=== PATIENT | female | born 1970 | race Caucasian/White ===

== ENCOUNTER 2017-05-02 13:33 | Inpatient (IN) | payer MEDICARE ==
[~2017-05-02] VITALS: Ht 157.5 cm; Wt 49.9 kg
[~2017-05-02 13:33] MED LIST: BENZ1TAB10 PO; HALO10 PO
[2017-05-02] MEDS ORDERED: INFLUENZA VIRUS VACCINE QVS 2017-18 (3YR+)/PF 60 MCG/0.5 ML SYRINGE IM ONE (14:45)
[2017-05-02] MEDS ORDERED: HALOPERIDOL 5 MG TABLET PO PRN (14:45)
[2017-05-02 16:06] VITALS: BP 119/73
[2017-05-02] MEDS: BENZTROPINE MESYLATE 1 MG TABLET PO SCH (17:00)
[2017-05-02] MEDS: HALOPERIDOL 10 MG TABLET PO SCH (21:00)
[2017-05-03 03:20] VITALS: BP 134/84
[2017-05-03] MEDS: ZOLPIDEM TARTRATE 10 MG TABLET PO PRN (03:23)
[2017-05-03] MEDS ORDERED: HALOPERIDOL LACTATE 5 MG/ML VIAL ONE (04:04)
[2017-05-03] MEDS ORDERED: LORazepam 2 MG/ML VIAL ONE (04:04)
[2017-05-03] MEDS ORDERED: DiphenhydrAMINE HCL 50 MG/ML VIAL ONE (04:04)
[2017-05-03] MEDS ORDERED: LORazepam 2 MG/ML VIAL IM ONE ×2 (04:15→19:45)
[2017-05-03] MEDS ORDERED: HALOPERIDOL LACTATE 5 MG/ML VIAL IM ONE ×2 (04:15→19:45)
[2017-05-03] MEDS ORDERED: DiphenhydrAMINE HCL 50 MG/ML VIAL IM ONE ×2 (04:15→19:45)
[2017-05-03 08:35] VITALS: BP 100/57
[2017-05-03 08:36] LABS: BASOPHILS % (AUTO) 0.7 % (0.0-2.0); EOSINOPHILS % (AUTO) 1.5 % (1.0-6.0); HEMATOCRIT 37.8 % (36-46); HEMOGLOBIN 12.7 g/dL (12.0-16.0); LYMPHOCYTES # (AUTO) 1.9 K/uL (1.0-4.8); LYMPHOCYTES % (AUTO) 18.7 % (22.0-44.0); MEAN CORPUSCULAR HEMOGLOBIN 29.1 pg (26.0-34.0); MEAN CORPUSCULAR HGB CONC 33.6 G/dL (31.0-37.0); MEAN CORPUSCULAR VOLUME 87 fL (80-100); MONOCYTES # (AUTO) 0.7 K/uL (0.1-1.0); MONOCYTES % (AUTO) 6.5 % (2.0-9.0); NEUTROPHILS # (AUTO) 7.3 K/uL (1.8-7.7); NEUTROPHILS % (AUTO) 72.6 % (40.0-70.0); PLATELET COUNT (AUTO) 328 K/uL (150-450); RED BLOOD CELL COUNT(AUTO) 4.37 MIL/uL (4.00-5.20); RED CELL DISTRIBUTION WIDTH 13.7 % (11.5-14.5)
[2017-05-03 08:39] LABS: HEMOGLOBIN A1C 5.5 % (4.5-6.2)
[2017-05-03 08:58] LABS: ALANINE AMINOTRANSFERASE 24 U/L (12-78); ALBUMIN 3.3 g/dL (3.4-5.0); ALKALINE PHOSPHATASE 67 U/L (46-116); ANION GAP 4 mmol/L (8-16); ASPARTATE AMINOTRANSFERASE 17 U/L (15-37); BILIRUBIN,TOTAL 0.2 mg/dL (0.1-1.0); CALCIUM, TOTAL 9.2 mg/dL (8.8-10.5); CARBON DIOXIDE 28 mmol/L (22-29); CHLORIDE 107 mmol/L (98-107); CHOLESTEROL 144 mg/dL (131-200); CREATININE 1.06 mg/dL (0.60-1.30); FREE T4 (FREE THYROXINE) 1.25 ng/dL (0.76-1.46); GLOMERULAR FILTR. RATE CALC 56 mL/min (>60); GLUCOSE,RANDOM 87 mg/dL (70-110); HCG,QUANTITATIVE < 1 mIU/mL (0-6); HDL CHOLESTEROL 71 mg/dL (40-60); LDL CHOL (CALC.) 63 mg/dL (0-130); SODIUM SERUM 139 mmol/L (136-145); THYROID STIMULATING HORMONE 0.59 uIU/mL (0.36-3.74); TOTAL PROTEIN, SERUM 6.4 g/dL (6.4-8.2); TRIGLYCERIDES 52 mg/dL (15-150); UREA NITROGEN, BLOOD 24 mg/dL (7-18)
[2017-05-03] MEDS: BENZTROPINE MESYLATE 1 MG TABLET PO SCH ×2 (09:00→17:00)
[2017-05-03 16:05] VITALS: BP 111/67
[2017-05-03] MEDS ORDERED: IBUPROFEN 400 MG TABLET PO PRN (17:00)
[2017-05-03] MEDS: HALOPERIDOL 10 MG TABLET PO SCH (21:00)
[2017-05-04 02:02] VITALS: BP 122/71
[2017-05-04] MEDS: ZOLPIDEM TARTRATE 10 MG TABLET PO PRN (02:04)
[2017-05-04 08:22] VITALS: BP 125/80
[2017-05-04] MEDS: BENZTROPINE MESYLATE 1 MG TABLET PO SCH ×2 (08:53→16:37)
[2017-05-04] MEDS ORDERED: HALOPERIDOL LACTATE 5 MG/ML VIAL IM ONE (09:30)
[2017-05-04] MEDS ORDERED: LORazepam 2 MG/ML VIAL IM ONE (09:30)
[2017-05-04] MEDS ORDERED: DiphenhydrAMINE HCL 50 MG/ML VIAL IM ONE (09:30)
[2017-05-04 16:31] VITALS: BP 138/90
[2017-05-04] MEDS: HALOPERIDOL 10 MG TABLET PO SCH (20:22)
[2017-05-05] MEDS ORDERED: DiphenhydrAMINE HCL 50 MG/ML VIAL ONE (06:12)
[2017-05-05] MEDS ORDERED: HALOPERIDOL LACTATE 5 MG/ML VIAL ONE (06:13)
[2017-05-05] MEDS ORDERED: LORazepam 2 MG/ML VIAL ONE (06:13)
[2017-05-05] MEDS ORDERED: HALOPERIDOL LACTATE 5 MG/ML VIAL IM ONE ×2 (06:15→18:15)
[2017-05-05] MEDS ORDERED: LORazepam 2 MG/ML VIAL IM ONE ×2 (06:15→18:15)
[2017-05-05] MEDS ORDERED: DiphenhydrAMINE HCL 50 MG/ML VIAL IM ONE ×2 (06:15→18:15)
[2017-05-05 06:52] VITALS: BP 110/62
[2017-05-05 07:12] VITALS: BP 116/73
[2017-05-05] MEDS: BENZTROPINE MESYLATE 1 MG TABLET PO SCH ×2 (08:19→17:00)
[2017-05-05 08:35] VITALS: BP 109/59
[2017-05-05 16:25] VITALS: BP 145/73
[2017-05-05] MEDS: HALOPERIDOL 10 MG TABLET PO SCH (21:00)
[2017-05-06 04:10] VITALS: BP 118/79
[2017-05-06] MEDS: BENZTROPINE MESYLATE 1 MG TABLET PO SCH ×2 (08:23→17:00)
[2017-05-06 08:36] VITALS: BP 130/100
[2017-05-06] MEDS: LORazepam 2 MG TABLET PO PRN (09:25)
[2017-05-06 16:15] VITALS: BP 120/72
[2017-05-06] MEDS: CIPROFLOXACIN HCL 500 MG TABLET PO SCH (17:00)
[2017-05-06] MEDS: HALOPERIDOL 10 MG TABLET PO SCH (20:58)
[2017-05-07] MEDS: ACETAMINOPHEN 325 MG TABLET PO PRN ×2 (00:33→11:40)
[2017-05-07] MEDS ORDERED: LORazepam 2 MG/ML VIAL ONE (00:52)
[2017-05-07] MEDS ORDERED: DiphenhydrAMINE HCL 50 MG/ML VIAL ONE (00:52)
[2017-05-07] MEDS ORDERED: HALOPERIDOL LACTATE 5 MG/ML VIAL ONE (00:52)
[2017-05-07] MEDS ORDERED: DiphenhydrAMINE HCL 50 MG/ML VIAL IM ONE (01:00)
[2017-05-07] MEDS ORDERED: LORazepam 2 MG/ML VIAL IM ONE (01:00)
[2017-05-07] MEDS ORDERED: HALOPERIDOL LACTATE 5 MG/ML VIAL IM ONE (01:00)
[2017-05-07] MEDS: CIPROFLOXACIN HCL 500 MG TABLET PO SCH ×2 (08:38→17:00)
[2017-05-07] MEDS: BENZTROPINE MESYLATE 1 MG TABLET PO SCH ×2 (08:38→17:00)
[2017-05-07 08:41] LABS: AMPHET/METH SCREEN,URINE NEGATIVE (NEGATIVE); BARBITURATE SCREEN, URINE NEGATIVE (NEGATIVE); BENZODIAZEPINES SCREEN,URINE NEGATIVE (NEGATIVE); CANNABINOID SCREEN,URINE NEGATIVE (NEGATIVE); COCAINE SCREEN,URINE NEGATIVE (NEGATIVE); METHADONE SCREEN, URINE NEGATIVE (NEGATIVE); OPIATE SCREEN,URINE NEGATIVE (NEGATIVE)
[2017-05-07 08:47] LABS: PHENCYCLIDINE SCREEN,URINE NEGATIVE (NEGATIVE)
[2017-05-07 09:06] LABS: APPEARANCE,URINE CLOUDY (CLEAR); BILIRUBIN,URINE NEGATIVE (NEGATIVE); GLUCOSE, URINE (UA) NEGATIVE (NEGATIVE); KETONES,URINE NEGATIVE (NEGATIVE); LEUKOCYTE ESTERASE ,URINE SMALL (NEGATIVE); NITRATE,URINE NEGATIVE (NEGATIVE); OCCULT BLOOD,URINE LARGE (NEGATIVE); PROTEIN,URINE TRACE (NEGATIVE); UROBILINOGEN,URINE 0.2 mg/dL (<=1.0)
[2017-05-07 10:15] LABS: AMORPHOUS SEDIMENT,UR Moderate /LPF (None Seen); BACTERIA,URINE Moderate /HPF (None Seen); SQUAMOUS EPITHELIAL CELL,UR Many /LPF (None Seen)
[2017-05-07 16:20] VITALS: BP 133/92
[2017-05-07] MEDS: HALOPERIDOL 10 MG TABLET PO SCH (20:31)
[2017-05-08] VITALS: BP 114/95
[2017-05-08] MEDS: LORazepam 2 MG TABLET PO PRN (00:04)
[2017-05-08] MEDS: ZOLPIDEM TARTRATE 10 MG TABLET PO PRN (00:04)
[2017-05-08] MEDS: BENZTROPINE MESYLATE 1 MG TABLET PO SCH (08:34)
[2017-05-08 08:46] VITALS: BP 110/85
== END 2017-05-08 09:30 | disposition home or self-care (01) | DRG 885 ==
LOC: B3A 14:42
PROVIDERS: ADMIT Psychiatry & Neurology Psychiatry; ATTEND Psychiatry & Neurology Psychiatry
DX: F20.0 Paranoid schizophrenia (principal); E05.90 Thyrotoxicosis, unspecified without thyrotoxic crisis or storm; F10.10 Alcohol abuse, uncomplicated; K21.9 Gastro-esophageal reflux disease without esophagitis; F19.10 Other psychoactive substance abuse, uncomplicated; Z71.51 Drug abuse counseling and surveillance of drug abuser; Z71.41 Alcohol abuse counseling and surveillance of alcoholic; Z88.0 Allergy status to penicillin; Z88.8 Allergy status to other drugs, medicaments and biological substances
CPT/HCPCS: 80307; 83036; 84439; 84443; 87081; 87086; J1200; J1630; J2060

== ENCOUNTER 2017-05-17 08:03 | Emergency (ER) | payer MEDICARE ==
[~2017-05-17] VITALS: Ht 157.5 cm; Wt 50.0 kg
[2017-05-17 08:26] LABS: BASOPHILS % (AUTO) 1.1 % (0.0-2.0); EOSINOPHILS % (AUTO) 1.2 % (1.0-6.0); HEMOGLOBIN 13.8 g/dL (12.0-16.0); LYMPHOCYTES % (AUTO) 21.5 % (22.0-44.0); MEAN CORPUSCULAR HEMOGLOBIN 28.5 pg (26.0-34.0); MEAN CORPUSCULAR HGB CONC 33.7 G/dL (31.0-37.0); MEAN CORPUSCULAR VOLUME 84 fL (80-100); MONOCYTES # (AUTO) 0.6 K/uL (0.1-1.0); MONOCYTES % (AUTO) 6.5 % (2.0-9.0); NEUTROPHILS # (AUTO) 6.3 K/uL (1.8-7.7); NEUTROPHILS % (AUTO) 69.7 % (40.0-70.0); PLATELET COUNT (AUTO) 388 K/uL (150-450); RED BLOOD CELL COUNT(AUTO) 4.86 MIL/uL (4.00-5.20); RED CELL DISTRIBUTION WIDTH 13.6 % (11.5-14.5)
[2017-05-17 08:32] LABS: AMPHET/METH SCREEN,URINE NEGATIVE (NEGATIVE); BARBITURATE SCREEN, URINE NEGATIVE (NEGATIVE); BENZODIAZEPINES SCREEN,URINE NEGATIVE (NEGATIVE); CANNABINOID SCREEN,URINE POSITIVE (NEGATIVE); COCAINE SCREEN,URINE NEGATIVE (NEGATIVE); METHADONE SCREEN, URINE NEGATIVE (NEGATIVE); OPIATE SCREEN,URINE NEGATIVE (NEGATIVE)
[2017-05-17 08:33] LABS: PHENCYCLIDINE SCREEN,URINE NEGATIVE (NEGATIVE)
[2017-05-17 08:37] LABS: ANION GAP 7 mmol/L (8-16); CALCIUM, TOTAL 9.7 mg/dL (8.8-10.5); CARBON DIOXIDE 29 mmol/L (22-29); CHLORIDE 105 mmol/L (98-107); CREATININE 0.75 mg/dL (0.60-1.30); GLOMERULAR FILTR. RATE CALC > 60 mL/min (>60); GLUCOSE,RANDOM 100 mg/dL (70-110); SODIUM SERUM 141 mmol/L (136-145); UREA NITROGEN, BLOOD 21 mg/dL (7-18)
[2017-05-17 08:53] LABS: ALANINE AMINOTRANSFERASE 31 U/L (12-78); ALKALINE PHOSPHATASE 75 U/L (46-116); ASPARTATE AMINOTRANSFERASE 24 U/L (15-37); BILIRUBIN,TOTAL 0.3 mg/dL (0.1-1.0); TOTAL PROTEIN, SERUM 7.8 g/dL (6.4-8.2)
[2017-05-17] MEDS ORDERED: HALOPERIDOL 5 MG TABLET PO ONE (09:15)
[2017-05-17] MEDS ORDERED: LORazepam 2 MG TABLET PO ONE (09:15)
[2017-05-17 10:33] VITALS: BP 133/71
== END 2017-05-17 10:34 | disposition home or self-care (01) ==
LOC: EMS 08:09
DX: F25.9 Schizoaffective disorder, unspecified (principal); F31.9 Bipolar disorder, unspecified; Z88.0 Allergy status to penicillin; Z88.5 Allergy status to narcotic agent; Z88.8 Allergy status to other drugs, medicaments and biological substances
CPT/HCPCS: 36415; 80053; 80307; 85025; 99284; G0480